=== PATIENT | male | born 1975 | race Caucasian/White ===

== ENCOUNTER 2020-10-16 12:45 | Observation (INO) | payer MEDICAID ==
[~2020-10-16] VITALS: Ht 177.8 cm; Wt 76.4 kg
[2020-10-16 16:00] LABS: BASO % 0.2 % (0.0-2.0); EOS # 0.4 (0.0-0.7); EOS % 7.1 % (0-4.0); GRAN # 4.2 (1.4-6.5); GRAN % 77.4 % (42.2-75.2); HEMATOCRIT 44.9 % (42.0-52.0); HEMOGLOBIN 14.7 g/dl (13.5-18.0); LYMPH # 0.5 (1.2-3.4); LYMPH % 9.7 % (20.0-51.0); MEAN CELL VOLUME 94 fl (80.0-100.0); MEAN CORPUSCULAR HEMOGLOBIN 31 pg (27.0-31.0); MEAN CORPUSCULAR HGB CONC 33 g/dl (33.0-37.0); MONO # 0.3 (0.1-0.6); MONO % 5.2 % (1.7-9.3); PLATELET COUNT 327 K/mm3 (130-400); RED BLOOD COUNT 4.78 M/mm3 (4.20-5.60); REDCELL DISTRIBUTION WIDTH-CV 11.3 % (11.5-14.5)
[2020-10-16 16:11] LABS: ALBUMIN 4.2 gm/dL (3.5-5.0); BILIRUBIN,TOTAL 0.5 mg/dL (0.0-1.0); C-REACTIVE PROTEIN 2.2 mg/dL (0.0-0.9); CALCIUM 8.9 mg/dL (8.4-10.2); CREATININE, serum 0.86 (0.66-1.25); POTASSIUM 4.6 mmol/L (3.4-5.0); TOTAL PROTEIN 7.4 gm/dL (6.4-8.2)
[2020-10-16] MEDS ORDERED: REVATIO20 MG (18:28)
[2020-10-16] MEDS ORDERED: KLONOPIN 1MG1 MG PO (18:29)
[2020-10-16] MEDS ORDERED: ADDERALL30 MG PO (18:30)
[2020-10-16] MEDS ORDERED: XANAX 0.5MG0.5 MG PO (18:30)
[2020-10-16] MEDS ORDERED: XANAX 1MG1 MG (18:31)
[2020-10-16] MEDS ORDERED: SEPTRA DS 8001 TAB PO (18:32)
--- NOTE | 2020-10-16 23:06 | NUR ---
Vancomycin Initial Dosing Pharmacy Note Ordering provider: Singh Villalta MD Indication/duration: Cellulitis/bursitis of knee Relevant comorbidities: NA LABS: WBC = 5.4, SCr = 0.86 Recommendation: Will draw troughs and follow levels. Loading dose: 1.5 grams Maintenance dose: 1.5 grams every 12 hours Trough goal: 10-15 ug/mL
[2020-10-17 01:08] VITALS: BP 114/68; PULSE 96; TEMP 98.9
--- NOTE | 2020-10-17 02:17 | NUR ---
Patient admitted to medical floor room 352 from ER around 2100. Patient A/O x4. Patient denies chest pain, SOB/dyspnea, N/V, dizziness, or headache. Patient reports burning pain to his right lower leg 10/10. RLE cellulitis site red, swollen, and pain to touch. Patient denies numbness or tingling. Patient independent. Oriented patient to the room, call light, TV, visiting hours, and bathroom. PRN [place] given at 21:24 pm, Dilaudid given at 22:28 pm and 00:46 am for RLE pain. Call light within reach. Will continie to monitor.
[2020-10-17 04:30] VITALS: BP 103/56; PULSE 95; TEMP 98.3
--- NOTE | 2020-10-17 05:19 | NUR ---
Patient awake around 04:45 am and reports some itching and swelling to BUE. Noticed BUE reddened and swollen, and some rashes to BLE. Patient denies SOB or dyspnea. Called hospitalist ANTOLIN ospina and reported symptoms. Benadryl 50mg PO given per order. Per ANTOLIN Ospina will stop scheduled Vancomycin at 0700 for now. Dilaudid given around 0500 am for RLE pain 10/10. Call light within reach. Will give report to day shift nurse.
--- NOTE | 2020-10-17 07:04 | NUR ---
Swelling and redness to bilateral hands improved. Rashes to upper leg/thingh area still present. Patient resting in bed at this time. No acute distress noted. Report given to day shift RN.
[2020-10-17 07:23] LABS: BASO % 0.3 % (0.0-2.0); EOS # 0.4 (0.0-0.7); EOS % 10.2 % (0-4.0); GRAN # 2.6 (1.4-6.5); GRAN % 65.2 % (42.2-75.2); HEMATOCRIT 37.1 % (42.0-52.0); LYMPH # 0.6 (1.2-3.4); LYMPH % 16.1 % (20.0-51.0); MEAN CELL VOLUME 92 fl (80.0-100.0); MEAN CORPUSCULAR HEMOGLOBIN 31 pg (27.0-31.0); MEAN CORPUSCULAR HGB CONC 33 g/dl (33.0-37.0); MEAN PLATELET VOLUME 9.3 fl (7.4-10.4); MONO # 0.3 (0.1-0.6); MONO % 7.9 % (1.7-9.3); PLATELET COUNT 265 K/mm3 (130-400); RED BLOOD COUNT 4.02 M/mm3 (4.20-5.60); REDCELL DISTRIBUTION WIDTH-CV 11.5 % (11.5-14.5)
[2020-10-17 07:34] LABS: HEMOGLOBIN 12.3 g/dl (13.5-18.0)
[2020-10-17 07:38] LABS: POTASSIUM 3.8 mmol/L (3.4-5.0)
[2020-10-17 07:40] LABS: ALBUMIN 3.1 gm/dL (3.5-5.0); BILIRUBIN,TOTAL 0.5 mg/dL (0.0-1.0); CALCIUM 7.7 mg/dL (8.4-10.2); CREATININE, serum 1.12 (0.66-1.25); TOTAL PROTEIN 5.7 gm/dL (6.4-8.2)
[2020-10-17 08:06] VITALS: BP 108/64; PULSE 82; TEMP 98.9
--- NOTE | 2020-10-17 08:15 | NUR ---
Shift assessment complete. Pt lying in bed, reports pain 9/10 to RLE. Right leg swollen from knee down with redness and warmth. Bilateral hands swollen and tight per pt report. 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 Heart RRR. Lungs CTA. IV fluids running at 125 ml/hr to left AC. Dilaudid administered per orders. Denies other needs at this time. Continuing to monitor.
--- NOTE | 2020-10-17 11:57 | NUR ---
SW met with patient to complete intake. Patient states that he lives in [place] with his Nancy [phone]. Patient provides he does not utilize any DME and is independent with ADL's. Patient states PCP is Dr. Tiwari, pharmacy is [facility], and is able to afford his medications. Patient did not wish to complete DPOA/HC documenation. Patient provides that his plan is to return to his home up on discharge and has no concerns with doing so. SW will continue to follow.
[2020-10-17 12:57] VITALS: BP 108/62; PULSE 80; TEMP 98.6
[2020-10-17 16:04] VITALS: BP 101/55; PULSE 70; TEMP 98.7
--- NOTE | 2020-10-17 17:39 | NUR ---
Pt resting w/eyes closed for much of day. Reports severe pain to RLE when awake. Dilaudid and norco alternated throughout day. Swelling in hands remains but per pt is improved since this morning. Doxy and cipro administered w/o s/s complication. Wound culture not collected d/t no drainage/scabbing over of lesion on RLE.
[2020-10-17 19:25] VITALS: BP 127/60; PULSE 85; TEMP 98
[2020-10-18 00:16] VITALS: BP 133/85; PULSE 80; TEMP 98.2
[2020-10-18 03:53] VITALS: BP 95/52; PULSE 85; TEMP 98.2
--- NOTE | 2020-10-18 06:41 | NUR ---
PATIENT SHOWERED LAST NIGHT. PATIENT AWAKE UNTIL APPROX 0330. NO NEW ISSUES REPORTED BY PATIENT OR NOTED BY THIS NURSE.
[2020-10-18 06:48] LABS: BASO % 0.2 % (0.0-2.0); EOS # 0.2 (0.0-0.7); EOS % 3.2 % (0-4.0); GRAN # 4.9 (1.4-6.5); GRAN % 75.8 % (42.2-75.2); HEMOGLOBIN 11.1 g/dl (13.5-18.0); LYMPH # 0.9 (1.2-3.4); MEAN CELL VOLUME 94 fl (80.0-100.0); MEAN CORPUSCULAR HEMOGLOBIN 31 pg (27.0-31.0); MEAN CORPUSCULAR HGB CONC 33 g/dl (33.0-37.0); MEAN PLATELET VOLUME 9.4 fl (7.4-10.4); MONO # 0.4 (0.1-0.6); MONO % 6.5 % (1.7-9.3); PLATELET COUNT 261 K/mm3 (130-400); RED BLOOD COUNT 3.61 M/mm3 (4.20-5.60); REDCELL DISTRIBUTION WIDTH-CV 11.5 % (11.5-14.5)
[2020-10-18 07:04] LABS: ALBUMIN 3.1 gm/dL (3.5-5.0); BILIRUBIN,TOTAL 0.2 mg/dL (0.0-1.0); CALCIUM 8.2 mg/dL (8.4-10.2); CREATININE, serum 0.84 (0.66-1.25); POTASSIUM 3.5 mmol/L (3.4-5.0); TOTAL PROTEIN 5.6 gm/dL (6.4-8.2)
[2020-10-18 07:11] LABS: HEMATOCRIT 33.8 % (42.0-52.0)
[2020-10-18 08:30] VITALS: BP 126/62; PULSE 74; TEMP 98.3
[2020-10-18 11:19] VITALS: BP 120/76; PULSE 75; TEMP 98.1
--- NOTE | 2020-10-18 13:09 | NUR ---
VASCULAR CALLED AND NOTIFIED OF BLE VENOUS DUPLEX.
[2020-10-18] MEDS ORDERED: CIPRO 500MG TA500 MG PO (13:13)
[2020-10-18] MEDS ORDERED: DOXYCYCLINE 10100 MG PO (13:13)
--- NOTE | 2020-10-18 15:35 | NUR ---
PATIENT ARRIVED BACK TO ROOM 354 VIA CART FROM IMAGINING.
[2020-10-18 16:02] VITALS: BP 104/68; PULSE 73; TEMP 98.1
--- NOTE | 2020-10-18 16:20 | NUR ---
ANTOLIN ZHENG CALLED AND NOTIFIED THAT THIS NURSE SPOKE WITH REGARDING THE PATIENTS BILATERAL ULTRASOUND DUPLEX RESULTS. THE US WAS NEGATIVE.
--- NOTE | 2020-10-18 17:17 | NUR ---
DISCHARGE INSTRUCTIONS REVIEWED WITH PATIENT. QUESTIONS SOUGHT AND ANSWERED. PATIENT DRESSED IN STREET CLOTHES. PATIENT PERSONAL BELONGINGS GATHERED. PATIENTS LEFT AC INT DISCONTINUED PER PENDING DISCHARGE. TIP INTACT. PATIENT TOLERATED WELL. PATIENT AWAITING ARRIVAL OF RIDE FOR DISCHARGE.
== END 2020-10-18 17:45 | disposition home or self-care (01) ==
LOC: COL.ER 12:45 → MEDICAL 18:16
PROVIDERS: Nurse Practitioner; Student in an Organized Health Care Education/Training Program; ADMIT Family Medicine
DX: L03.115 Cellulitis of right lower limb (principal); M79.604 Pain in right leg; M79.89 Other specified soft tissue disorders; R21 Rash and other nonspecific skin eruption; F41.9 Anxiety disorder, unspecified; F90.9 Attention-deficit hyperactivity disorder, unspecified type; F17.210 Nicotine dependence, cigarettes, uncomplicated; F12.90 Cannabis use, unspecified, uncomplicated; Z79.899 Other long term (current) drug therapy; Z88.0 Allergy status to penicillin; Z88.1 Allergy status to other antibiotic agents
CPT/HCPCS: 99223-AI; 99233-AI; 99239; G0378; J0744; J1170; J1644; J2543; J2930; J3370; J7030; J7050; Q9967